=== PATIENT | female | born 1950 | race Caucasian/White ===

== ENCOUNTER 2023-04-03 11:28 | Outpatient (CLI) | payer MEDICARE, OTHER | END 2023-04-03 11:29 | disposition home or self-care (01) | LOC: BURRAD 11:28 | PROVIDERS: ATTEND Family Medicine | DX: M16.0 Bilateral primary osteoarthritis of hip (principal); R20.2 Paresthesia of skin; M47.816 Spondylosis without myelopathy or radiculopathy, lumbar region; M51.36 Other intervertebral disc degeneration, lumbar region; M25.78 Osteophyte, vertebrae; M89.9 Disorder of bone, unspecified | CPT/HCPCS: 72110 ==

== ENCOUNTER 2024-11-05 09:42 | Outpatient (CLI) | payer MEDICARE, OTHER ==
[2024-11-05 10:09] LABS: Calc. Creatinine Clearance 0.0 mL/min (70-130)
[2024-11-05] MEDS ORDERED: Iopamidol 370 76% 100 ML VIAL ONE (17:04)
== END 2024-11-05 09:43 | disposition home or self-care (01) ==
LOC: BURCT 09:42
PROVIDERS: ATTEND Family Medicine
DX: Z01.818 Encounter for other preprocedural examination (principal); N28.1 Cyst of kidney, acquired; E27.9 Disorder of adrenal gland, unspecified; N28.89 Other specified disorders of kidney and ureter
CPT/HCPCS: 36415; 74177; 82565; Q9967